=== PATIENT | male | born 1980 | race Caucasian/White ===

== ENCOUNTER 2019-11-19 09:58 | Day surgery (SDC) | payer BC ==
[2019-11-17 14:37] LABS: BASOPHILS # (AUTO) 0.1 K/uL (0.0-0.2); EOSINOPHILS # (AUTO) 0.3 K/uL (0.0-0.4); EOSINOPHILS % (AUTO) 3.8 % (0.0-4.0); HEMATOCRIT 45.4 % (36-54); HEMOGLOBIN 15.1 g/dL (14.0-18.0); LYMPHOCYTES # (AUTO) 2.6 K/uL (1.0-5.5); LYMPHOCYTES % (AUTO) 36.8 % (20.5-51.5); MEAN CORPUSCULAR HEMOGLOBIN 29 pg (27-31); MEAN CORPUSCULAR HGB CONC 33 % (32-36); MEAN CORPUSCULAR VOLUME 88 fL (79.0-98.0); MONOCYTES # (AUTO) 0.5 K/uL (0.0-1.0); MONOCYTES % (AUTO) 7.4 % (1.7-9.3); NEUTROPHILS # (AUTO) 3.6 K/uL (1.8-7.7); PLATELET COUNT (AUTO) 232 K/uL (130-430); RED BLOOD CELL COUNT(AUTO) 5.19 MIL/uL (4.2-6.2); RED CELL DISTRIBUTION WIDTH 12.6 % (9.0-15.0); WHITE BLOOD COUNT (AUTO) 7.1 K/uL (4.8-10.8)
[2019-11-17 17:01] LABS: BILIRUBIN,URINE NEGATIVE (NEGATIVE); CLARITY/URINE CLEAR (CLEAR); COLOR,URINE YELLOW (YELLOW); GLUCOSE,URINE NEGATIVE (NEGATIVE); KETONES,URINE NEGATIVE (NEGATIVE); LEUKOCYTE ESTERASE ,URINE NEGATIVE (NEGATIVE); NITRITE, URINE NEGATIVE (NEGATIVE); PH,URINE 5.5 (5.0-8.0); PROTEIN URINE NEGATIVE (NEGATIVE); UROBILINOGEN,URINE 0.2 (0.2-1.0)
[2019-11-17 17:07] LABS: BLOOD, URINE TRACE (NEGATIVE)
[2019-11-17 18:37] LABS: BACTERIA,URINE FEW /HPF (None Seen); MUCUS,URINE None Seen /LPF (None Seen); RBC,URINE 0-3 /HPF (0-3); WBC,URINE 0-3 /HPF (0-3)
[~2019-11-19] VITALS: Ht 175.3 cm; Wt 97.5 kg
[2019-11-19] MEDS ORDERED: PROPOFOL 200MG/ 20ML VIAL (DIPRIVAN) IV ONE (13:05)
[2019-11-19] MEDS ORDERED: ONDANSETRON HCL 4 MG/2 ML VIAL ONE (13:05)
[2019-11-19] MEDS ORDERED: LR 1,000 ML IV.SOLN IV ONE (13:05)
[2019-11-19] MEDS ORDERED: MIDAZOLAM HCL 5 MG/ML VIAL (VERSED) IV ONE (13:05)
[2019-11-19] MEDS ORDERED: SEVOFLURANE 15 MIN GAS INH ONE (13:05)
[2019-11-19] MEDS ORDERED: fentaNYL CITRATE 250 MCG/5 ML AMP ONE (13:05)
[2019-11-19] MEDS ORDERED: ROCURONIUM BROMIDE 10 MG/ML (ZEMURON) ONE (13:05)
[2019-11-19] MEDS ORDERED: CEFAZOLIN 2 GM IVPB PREMIX 50 ML IV ONE (13:07)
[2019-11-19] MEDS ORDERED: LR 1,000 ML IV SCH (13:09)
[2019-11-19] MEDS ORDERED: MORPHINE 4 MG/ML INJ. SYRINGE IVP PRN ×3 (13:15)
[2019-11-19] MEDS ORDERED: METOCLOPRAMIDE HCL 10 MG/2 ML VIAL IVP PRN (13:15)
[2019-11-19 14:06] VITALS: BP_SYST 129
== END 2019-11-19 15:00 | disposition home or self-care (01) ==
LOC: SMU 09:58 → SDS 09:58
PROVIDERS: ATTEND Orthopaedic Surgery
DX: S46.311A Strain of muscle, fascia and tendon of triceps, right arm, initial encounter (principal); X50.0XXA Overexertion from strenuous movement or load, initial encounter; Y93.89 Activity, other specified; Y92.89 Other specified places as the place of occurrence of the external cause; Y99.8 Other external cause status
CPT/HCPCS: 24341; 36415; 81000; 85025; A4565; J0690; J2250; J2405; J2704; J3010; J7120

== ENCOUNTER 2024-05-14 11:42 | Day surgery (SDC) | payer OTHER ==
[~2024-05-14] VITALS: Ht 177.8 cm; Wt 97.5 kg
[2024-05-14] MEDS ORDERED: fentaNYL CITRATE/PF 100 MCG/2 ML AMP ONE (13:13)
[2024-05-14] MEDS ORDERED: MIDAZOLAM HCL 5 MG/5 ML VIAL ONE ×3 (13:13→13:16)
[2024-05-14 15:00] VITALS: O2SAT 95
[2024-05-14 17:32] VITALS: BP_SYST 146; PULSE 79; RESP 13
== END 2024-05-14 14:52 | disposition home or self-care (01) ==
LOC: SMU 11:42 → SDS 11:42
PROVIDERS: ATTEND Surgery
DX: R10.13 Epigastric pain (principal); K29.50 Unspecified chronic gastritis without bleeding; Z98.890 Other specified postprocedural states
CPT/HCPCS: 43239; 88305; 88312; 88313; G0378; J2250; J3010

== ENCOUNTER 2024-07-16 08:00 | Outpatient (CLI) | payer OTHER ==
[~2024-07-16] VITALS: Ht 177.8 cm; Wt 99.8 kg
[~2024-07-16 08:00] MED LIST: CEFAZOLIN SOD 1 GM in D5W 50 ML IV ONE
== END 2024-07-16 15:30 | disposition home or self-care (01) ==
LOC: SLB 08:00 → EDSTATUS 13:00 → SLB 15:30
PROVIDERS: ATTEND Surgery
DX: K42.9 Umbilical hernia without obstruction or gangrene (principal)
CPT/HCPCS: 87081; 93005; J0690; J7060